=== PATIENT | male | born 1995 | race African-American/Black ===

== ENCOUNTER 2019-09-13 12:41 | Emergency (ER) | payer BC, OTHER ==
[2019-09-13 12:48] VITALS: BP 128/80; PULSE 76; TEMP 98.8; BMI 36.9
--- NOTE | 2019-09-13 12:50 | PDOC ---
Rapid Medical Evaluation Chief Complaint: Headache Time Seen by Provider: 09/13/19 12:44 Medical Evaluation: Allergies Allergy/AdvReac Type Severity Reaction Status Date / Time No Known Allergies Allergy Verified 12/03/11 17:01 09/13/19 12:48 CC: headache and gen weakness since 4am this am, no other complaints, no visual complaints, no hx of migraine/headaches Exam: vss, in NAD, wears glasses Plan: Discharge Disposition - Diagnosis Headache - Referrals - Patient Instructions - Post Discharge Activity
--- NOTE | 2019-09-13 13:04 | PDOC ---
History of Present Illness - General Chief Complaint: Headache Stated Complaint: WEAKNESS Time Seen by Provider: 09/13/19 12:44 - History of Present Illness Initial Comments: 09/13/19 13:02 24-year-old male without comorbidities presents for evaluation of headache which started last night. Past History - Medical History Allergies/Adverse Reactions: Allergies Allergy/AdvReac Type Severity Reaction Status Date / Time No Known Allergies Allergy Verified 09/13/19 12:48 Home Medications: Ambulatory Orders No Home Medications 0 dose .ROUTE UTDICT 12/03/11 COPD: No - Immunization History Immunization Up to Date: Yes - Psycho-Social/Smoking History Smoking Status: No Smoking History: Never smoked Number of Cigarettes Smoked Daily: 0 Information on smoking cessation initiated: No - Substance Abuse Hx (Audit-C & DAST Scrn) How often the patient has a drink containing alcohol: Never Score: In Men: 4 or > Positive; In Women: 3 or > Positive: 0 Screen Result (Pos requires Nsg. Audit-10AR): Negative In the last yr the pt used illegal drug/Rx for NonMed reason: No Score: Yes response is considered Positive: 0 Screen Result (Positive result requires Nsg. DAST-10): Negative Review of Systems - Review of Systems Constitutional: No: Fever Neurological: Yes: Headache *Physical Exam - Vital Signs Last Vital Signs Temp Pulse Resp BP Pulse Ox 98.8 F 76 19 128/80 100 09/13/19 12:46 09/13/19 12:46 09/13/19 12:46 09/13/19 12:46 09/13/19 12:46 - Physical Exam 09/13/19 13:02 GENERAL: The patient is awake, alert, and fully oriented, in no acute distress. HEAD: Normal with no signs of trauma. EYES: sclera anicteric, conjunctiva clear. ENT: Ears normal tympanic membranes normal oropharynx clear uvula midline NECK: Normal range of motion LUNGS: Breath sounds equal, clear to auscultation bilaterally. No wheezes, and no crackles. HEART: S1 and S2 without murmur, rub or gallop. ABDOMEN: Soft, nontender, normoactive bowel sounds. No guarding, no rebound. No masses. EXTREMITIES: Normal range of motion, no edema. No clubbing or cyanosis. No cords, erythema, or tenderness. NEUROLOGICAL: Cranial nerves II through XII grossly intact. PSYCH: Normal mood, normal affect. SKIN: Warm, Dry, normal turgor, no rashes or lesions noted. Medical Decision Making - Medical Decision Making 09/13/19 13:02 Headache has resolved since the presentation last night. He has no gross neurologic deficits on examination no asymmetry on smiling 5 out of 5 strength with facial muscles bilateral upper and lower extremities are 5 out of 5 without gross sensorimotor deficits. I will refer patient to neurology for further evaluation and treatment discussed use of Tylenol and Motrin which he did not take for his headache. I have reviewed the pathophysiology with the patient. They are in agreement with the treatment plan all questions were answered to their satisfaction. Understanding for follow-up without fail was also conveyed to the patient. Again they are in agreement. Discharge - Discharge Information Problems reviewed: Yes Clinical Impression/Diagnosis: Headache Condition: Stable Disposition: HOME - Admission No - Follow up/Referral Referrals: Con Izaguirre MD [Staff Physician] - - Patient Discharge Instructions Additional Instructions: Tylenol and Motrin for headache as directed and return to the emergency room should symptoms worsen. Without fail follow-up with neurology in 1 to 2 days for further evaluation and treatment options. - Post Discharge Activity
== END 2019-09-13 13:18 | disposition home or self-care (01) ==
LOC: JERFT 12:41
DX: R51 Headache (principal)
CPT/HCPCS: 99282-25

== ENCOUNTER 2020-12-29 14:42 | Emergency (ER) | payer BC, OTHER ==
[2020-12-29 15:17] VITALS: BP 128/81; PULSE 88; TEMP 98; BMI 39.9
== END 2020-12-29 17:00 | disposition home or self-care (01) ==
LOC: JER 14:42
DX: G44.89 Other headache syndrome (principal); B34.9 Viral infection, unspecified
CPT/HCPCS: 99283-25; C9803; U0003; U0005